=== PATIENT | male | born 2000 | race American Indian/Alaskan Native ===

== ENCOUNTER 2021-05-18 21:49 | Emergency (ER) | payer SELFPAY ==
[2021-05-18 22:51] VITALS: BP 144/74
== END 2021-05-18 22:55 | disposition left against medical advice (07) ==
LOC: ED 21:49
DX: M54.9 Dorsalgia, unspecified (principal); M25.519 Pain in unspecified shoulder; R51.9 Headache, unspecified; Z53.21 Procedure and treatment not carried out due to patient leaving prior to being seen by health care provider